=== PATIENT | female | born 1945 | race Caucasian/White ===

== ENCOUNTER 2019-04-19 01:37 | Inpatient (IN) | payer MEDICARE, OTHER ==
[~2019-04-19] VITALS: Ht 152.4 cm; Wt 88.3 kg
[2019-04-19] VITALS (16 sets, daily range): BP systolic 133–189; BP diastolic 57–134
[~2019-04-19 01:37] MED LIST: ACET-2146 PO; CALC-83 PO; MELA10CA PO; MULT-1335 PO; RANI150C17 PO; TRAM-420 PO
[2019-04-19] MEDS ORDERED: LIDOCAINE/SOD BICARB 8.4% SYR ID ONE (05:30)
[2019-04-19] MEDS ORDERED: MIDAZOLAM 2 MG/2 ML VIAL IVP PRN (05:30)
[2019-04-19] MEDS ORDERED: BACITRACIN 50000 UNIT/VIAL 50,000 UNIT in NS 0.9% IRRIG(*) 1000ML PLCT 1,000 ML IR PRN ×2 (05:30→06:00)
[2019-04-19] MEDS ORDERED: ROPIVACAINE/EPI/CLONIDINE/KET 50 ML SYRINGE INJ ONE (05:30)
[2019-04-19] MEDS ORDERED: CLINDAMYCIN(*) 900 MG/NS 50 ML 50 ML IVPB ONE (05:30)
[2019-04-19] MEDS: NORMOSOL R SOLN(*) 1000 ML BAG 1,000 ML IV PRN ×2 (05:34→09:40)
[2019-04-19] MEDS ORDERED: ACETAMINOPHEN 500 MG TAB PO ONE (06:00)
[2019-04-19] MEDS ORDERED: PREGABALIN 75 MG CAPSULE PO ONE (06:00)
[2019-04-19] MEDS ORDERED: THROMBIN (BOVINE) 20,000 UNIT VIAL ONE (06:28)
[2019-04-19] MEDS ORDERED: ROPIVACAINE 0.2% 20 ML VIAL ONE (06:28)
[2019-04-19] MEDS ORDERED: REMIFENTANIL HCL 1 MG VIAL ONE (06:57)
[2019-04-19] MEDS ORDERED: PROPOFOL EMUL(*) 10MG/ML 20 ML 120 ML ONE (08:44)
[2019-04-19] MEDS ORDERED: SUGAMMADEX SOD 500 MG/5 ML SDV ONE (08:44)
[2019-04-19] MEDS ORDERED: ONDANSETRON 4 MG/2 ML VIAL ONE (08:44)
[2019-04-19] MEDS ORDERED: ROCURONIUM BROM 10 MG/ML 10 ML ONE (08:44)
[2019-04-19] MEDS ORDERED: HYDROmorphone HCL 2 MG/ML SDV ONE (08:51)
--- NOTE | 2019-04-19 09:22 | RADIOLOGY IMAGING REPORT ---
FACILITY: [facility] PATIENT NAME: Sepideh Stephenson : 1945 MR: [id number] V: [id number] EXAM DATE: ORDERING PHYSICIAN: ROBERT WHYTE TECHNOLOGIST: Location: [facility] Patient: Sepideh Stephenson : 1945 Visit/Account:[id number] Date of Sevice: 04/19/2019 Lumbar spine Indication: L4-5 disc herniation/fusion. Comparison: 01/10/2019. FINDINGS: 2 intraoperative radiographs demonstrating surgical hardware posterior to the L4-L5 disc space with s ubsequent L4-L5 posterior fusion hardware placement. The spondylolisthesis appears to be resolved on the second radiograph after fusion hardware placement. Normal lumbar lordosis. No acute osseous abnormality. Moderate degenerative disc disease at L2-L3. Mild/moderate additional multilevel degenerative disc d isease. IMPRESSION: 1. Intraoperative radiographs demonstrating L4-L5 fusion hardware placement. No visualized hardware complication. Report Dictated By: Murray Fleming MD at 04/19/2019 9:14 AM Report E-Signed By: Murray Fleming MD at 04/19/2019 9:17 AM WSN:[email or web address]
[2019-04-19] MEDS ORDERED: fentaNYL CITR 100 MCG/2 ML AMP ONE ×2 (09:47→10:12)
[2019-04-19] MEDS ORDERED: diphenhydrAMINE 25 MG CAP PO PRN (10:05)
[2019-04-19] MEDS ORDERED: ACETAMINOPHEN 500 MG TAB PO PRN (10:05)
[2019-04-19] MEDS ORDERED: ONDANSETRON 4 MG/2 ML VIAL IVP PRN (10:05)
[2019-04-19] MEDS ORDERED: BISACODYL 10 MG SUPP PR PRN (10:05)
[2019-04-19] MEDS ORDERED: ACETAMINOPHEN(*)1000 MG/100 ML 100 ML IVPB PRN (10:05)
[2019-04-19] MEDS ORDERED: FLUSH 10 ML SYR IVP PRN (10:05)
[2019-04-19] MEDS ORDERED: LR(*) 1000 ML BAG 1,000 ML IV PRN (10:05)
[2019-04-19] MEDS ORDERED: MAGNESIUM HYDROXIDE* 30ML UDCP PO PRN (10:05)
[2019-04-19] MEDS ORDERED: oxyCODONE HCL 5 MG CAP PO PRN (10:05)
[2019-04-19] MEDS ORDERED: HYDROmorphone HCL 2 MG/ML SDV IVP PRN (10:05)
[2019-04-19] MEDS ORDERED: BENZOCAINE/MENTHOL 1 EACH LOZG PO PRN (10:05)
[2019-04-19] MEDS ORDERED: DIAZEPAM 5 MG TAB PO PRN (10:05)
--- NOTE | 2019-04-19 10:11 | OPERATIVE REPORT 1 ---
EVENT DATE: April 19, 2019 SURGEON: Gokul Dutton MD ANESTHESIOLOGIST: Isai Acosta MD ANESTHESIA: General endotracheal anesthesia. 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 POSTOPERATIVE DIAGNOSIS L4, L5 spinal stenosis with L4, L5 degenerative spondylolisthesis and left leg radiculopathy, plus neurogenic claudication. PROCEDURE PERFORMED L4, L5 laminectomy with L4, L5 posterolateral instrumented fusion and reduction of L4, L5 spondylolisthesis with placement of pedicle screw construct. IV FLUIDS 1800 cc. ESTIMATED BLOOD LOSS 120 cc. IMPLANTS USED 6.5 mm x 45 mm pedicle screws from [employer] x2, 6.5 mm x 40 mm pedicle screws from [employer] x2, 40 mm connecting rods from [employer] x2 and locking caps from [employer] x4. SPECIMENS None. DRAINS None. COMPLICATIONS None. DISPOSITION Post-anesthesia care unit. INDICATIONS FOR SURGERY Ms. Stephenson is a 73-year-old female who presented with a complaint of low back pain and radiating left lower extremity pain, numbness, and tingling. The symptoms have been present for about 4 years and initially symptoms were relieved by clinical care manager. Last year, the symptoms returned with radiating pain down the upper left buttock and then down the posterior buttock, posterior thigh to the level of the knee. The patient noted a decreased in walking tolerance secondary to heaviness and tiredness in both of her legs. She failed physical therapy, injections, medications, and nonsurgical care. Physical examination revealed normal range of motion, normal strength and sensation and a weakly positive straight leg raising test on the left. Imaging studies showed an anterolisthesis of L4 on L5 with severe spinal stenosis at that level and significant compression of the neural elements traversing the L4, L5 disc space. Other levels had less significant degenerative changes, but no significant pressure on the neural elements. Secondary to ongoing symptoms and failure of nonsurgical care, Ms. Stephenson was offered and elected to undergo L4, L5 laminectomy with reduction of the spondylolisthesis and a posterolateral fusion with use of pedicle screw construct. Prior to surgery, I explained in detail to the patient the possible risks of surgery. Risks include, bleeding, infection, damage to surrounding structures, nerve root injury, spinal fluid leak, meningitis, persistent and/or worsening pain, need for further surgery, , blindness, sexual dysfunction, autonomic nervous system dysfunction, and other unforeseen medical and surgical complications. An understanding that in general, spinal surgery is more predictive at improving extremity discomfort than axial spine pain was stressed. DESCRIPTION OF PROCEDURE On the day of surgery, the patient was med in the preoperative hold area and all questions were answered. The operative site was identified and marked by myself. The patient was brought in good condition to the operating room and after succumbing to anesthesia was positioned in the prone position on a Hollis table. All bony protuberances and soft tissues were well-padded in the standard fashion. Care was taken to maintain appropriate perfusion pressures during anesthesia. Preoperative antibiotics were administered according to the appropriate timing schedule. At the conclusion of the procedure sponge and needle counts were correct x2. A final timeout was undertaken by members of the operating team to confirm correct patient, correct levels, and correct surgery. A vertical incision was made overlying the intended surgical levels and sharp dissection was carried out down to the posterior elements. A lateral radiograph was obtained to confirm appropriate spinal levels. Soft tissues were elevated off the posterior elements in a subperiosteal manner and I then took time to dissect out starting points for pedicles screws bilaterally at L4 and bilaterally at L5. This involved dissecting out along the lamina of L4 and L5 and then moving superiorly along the respective pars interarticularis, up to the facet joint above and out to the tips of the transverse processes bilaterally. Once this was accomplished, thrombin soaked sponges were packed into the lateral gutters to maintain space and control bleeding. A Leksell rongeur was then used to remove the spinous process of L4. The lamina of L4 was thinned down the midline using the Leksell rongeur. A straight Navarrete curette was then used to undermine the superior insertion of the ligamentum flavum from the inferior aspect of the lamina of L4. Once I entered the canal, I used a Dodge elevator to separate any dural adhesions from surrounding bone and soft tissue prior to using to Kerrison punch. A midline decompression was performed using a #3 and #4 Kerrison and once that was completed, we then performed bilateral lateral recess decompressions, taking out a significant amount of thickened ligamentum and undercutting the facet joints of L4, L5 bilaterally taking care not to take more than 50% of the joint on either side. Once we had good decompression of the neural elements, we applied FloSeal and surgical patties into the lateral recesses to control bleeding. We then turned our attention to placement of instrumentation. Starting on the right side, we first removed the thrombin soaked sponge and then identified starting points for pedicle screws at approximately the junction of the par interarticularis, the midpoint of the transverse process and the lateral border of the facet. A 5 mm high-speed fransisca was used to decorticate the starting point and a Lenke's type probe was then advanced against resistance through the isthmus of the pedicle and into the vertebral body. We then probed the pedicles using a ball-tip feeler, probing superiorly, inferiorly, medially, laterally, and distally to insure absence of bony breaching. We selected 45 mm screws for the L4 level and 40 mm screws for the L5 level. These screws had extended tabs and so once these were placed bilaterally at both L4 and L5, we selected 40 mm connecting rods and were able to use the extended tabs to effect a reduction of the spondylolisthesis. The locking caps were then tightened and then the counter-torque device was applied and the caps were finally tightened, snapping off the insertion nipples. We took a lateral radiograph to confirm appropriate placement of the instrumentation and then we irrigated the wound with 2 liters of antibiotic impregnated solution. I then used the high-speed fransisca to decorticate the transverse processes of L4 and L5 bilaterally and also to decorticate the facet joints bilaterally. We then placed a combination of harvested local bone and some allograft mixed with demineralized bone matrix into the lateral gutters overlying the transverse processes. Retractors were then removed and the wound was closed in layers using interrupted sutures for the deep fascia, inverted interrupted sutures for subcutaneous tissue and then a running subcuticular skin stitch. Sponge and needle counts were correct x2. POSTOPERATIVE CARE PLAN Ms. Stephenson will remain in the hospital until she meets discharge criteria. She will then be discharged home with instructions to follow up in 2 weeks for wound check and examination. GLENN
--- NOTE | 2019-04-19 13:18 | Hospitalist Consultation ---
History of Present Illness Requesting Physician Dr. Dutton Reason for Consult Medical Management Chief Complaint s/p lumbar fusion History of Present Illness She was admitted s/p lumbar fusion. It is reported the surgery went well and without complication. History Problems: (1) GERD (gastroesophageal reflux disease) Status: Chronic Home Meds Reported Medications Melatonin (MELATONIN) 10 Mg Capsule, 10 MG PO QHS, CAPSULE 04/13/19 Multivitamin With Minerals (MULTIPLE VITAMIN) 1 Each Tablet, 1 EACH PO QAM, TAB 04/13/19 Ranitidine Hcl (RANITIDINE HCL) 150 Mg Capsule, 150 MG PO BID, CAPSULE 04/13/19 Calcium Citrate/Vitamin D3 (Calcium Citrate +Vit D3 Tablet) 200 Mg Calcium-250 Unit Tablet, 1 TAB PO QAM 04/13/19 Acetaminophen 500 Mg Tab (ACETAMINOPHEN EXTRA STRENGTH) 500 Mg Tablet, 500 MG PO PRN, TAB 04/13/19 Tramadol Hcl (TRAMADOL HCL) 50 Mg Tablet, 50-100 MG PO PRN, TAB 04/13/19 Allergies: Coded Allergies: Penicillins (Verified Allergy, Severe, 04/13/19) HIVES Sulfa (Sulfonamide Antibiotics) (Verified Allergy, Unknown, 04/13/19) cephalexin (Verified Allergy, Unknown, RASH, 04/19/19) Smoking Status: Former Smoker When Quit Tobacco?: Caffeine Intake: Coffee Caffeine/Cups Per Day: 3/DAY Hx Alcohol Use: Yes (RARELY ) Alcohol Used: Wine Hx Substance Use Disorder: No Social Drug Use: Former Social Drugs: Marijuana Review of Systems All Systems Reviewed/Normal: Yes, Except as Noted Exam Vital Signs Vital Signs Date Time Temp Pulse Resp B/P (MAP) Pulse Ox O2 Delivery O2 Flow Rate FiO2 04/19/19 10:45 97.5 68 16 183/81 (115) 95 Nasal Cannula 2.0 General Appearance: Alert, Awake, No Acute Distress, Afebrile Neuro: No Gross deficits Cardiovascular: Regular Rate and Rhythm Respiratory: No Respiratory Distress, Clear to Auscultation GI: Abd Soft and Non-Tender Psych: Alert & Oriented X3, Appropriate Mood & Affect Assessment and Plan Problems: (1) S/P lumbar fusion Status: Acute Assessment & Plan: Followed by Dr. Dutton. (2) GERD (gastroesophageal reflux disease) Status: Chronic Assessment & Plan: Continue chronic ranitidine. Venous Thromboembolism Antithrombotics Is Pt On Any Antithrombotics?: No Prophylaxis Tx Contraindicated Pharmacological Contraindicati: Surgical Contraindication Exam Sepsis Risk: No Definite Risk RIVERA MERIDA [facility] Apr 19, 2019 13:18
[2019-04-19] MEDS: CLINDAMYCIN(*) 900 MG/NS 50 ML 50 ML IVPB SCH ×2 (15:23→22:08)
[2019-04-19] MEDS: APAP/HYDROCODONE 325/5 TAB PO PRN ×2 (15:23→19:43)
--- NOTE | 2019-04-19 18:40 | NUR ---
Physical Therapy Impression PT eval completed. Pt tolerated log roll techinque to R) side with some assist for proper body mechanics. Pt encouraged to practice this technique through the evening with nursing as well. Pt indicates that she has 2 steps without rail to access home and spouse generally assists with this. Physical Therapy Goals 1. Pt to be Min/CGA for log roll technique supine to/from sit. 2. Pt to be CGA/SBA for sit to/from stand transfers 3. Pt to tolerate ambulation x 100' with least restrictive device and modified indep 4. Pt to complete up/down platform step x 2 reps with CGA or hand-held assist. Patient's Goals
[2019-04-19] MEDS: DOCUSATE SODIUM 100 MG CAP PO SCH (22:08)
[2019-04-19] MEDS: RANITIDINE HCL 150 MG TAB PO SCH (22:08)
[2019-04-20] MEDS: APAP/HYDROCODONE 325/5 TAB PO PRN ×3 (00:31→09:29)
[2019-04-20 02:59] VITALS: BP 148/76
[2019-04-20] MEDS: CLINDAMYCIN(*) 900 MG/NS 50 ML 50 ML IVPB SCH (06:26)
[2019-04-20] MEDS ORDERED: HYDR-653 PO (07:21)
[2019-04-20] MEDS ORDERED: DOCU240C84 PO (07:21)
[2019-04-20] MEDS ORDERED: DIA5 PO (07:22)
[2019-04-20 07:51] VITALS: BP 130/77
[2019-04-20] MEDS: RANITIDINE HCL 150 MG TAB PO SCH (09:28)
[2019-04-20] MEDS: DOCUSATE SODIUM 100 MG CAP PO SCH (09:29)
--- NOTE | 2019-04-20 10:25 | NUR ---
Physical Therapy Impression Patient ambulated with 4WW ~275 SBA with decreased yaw and cuing for posture. Raised patients walker to improve posture with gait. Patient denied pain with ambulation. Patient ascended and descended 1 platform step with rail on right and [employer] on left with cuing to step up with right leg and down with left as her right is stronger than her left. Patient reports that this really helped and made performing the platform step easier. Patient performed 2 reps with the watching. Patient was SBA with supine to sit log roll with bed rail for assist and then CGA for sit to supine with railing on bed. Patient demonstrated good technique with log roll. All goals are met and patient is ready to d/c to home with OP therapy to follow in a month. Physical Therapy Goals 1. Pt to be Min/CGA for log roll technique supine to/from sit. 2. Pt to be CGA/SBA for sit to/from stand transfers 3. Pt to tolerate ambulation x 100' with least restrictive device and modified indep 4. Pt to complete up/down platform step x 2 reps with CGA or hand-held assist. Patient's Goals
--- NOTE | 2019-04-20 11:16 | Hospitalist Progress Note ---
Subjective Progress Notes Subjective She was admitted s/p lumbar fusion. She had no acute events overnight. Patient Complains of: Cardiovascular: No: Chest Pain Respiratory: No: Shortness of Breath Physical Exam Vital Signs Date Time Temp Pulse Resp B/P (MAP) Pulse Ox O2 Delivery O2 Flow Rate FiO2 04/20/19 07:51 99.3 64 20 130/77 (94) 92 Room Air 04/20/19 07:06 1.0 Intake and Output 04/20/19 07:00 Intake Total 1250 ml Output Total 20 ml Balance 1230 ml Intake Oral 0 ml IV Total 1250 ml Output Estimated Blood Loss 20 ml # Voids 4 # Bowel Movements 0 General Appearance: Alert, Awake, No Acute Distress, Afebrile Neuro: No Gross deficits Cardiovascular: Regular Rate and Rhythm Respiratory: No Respiratory Distress, Clear to Auscultation GI: Soft and Non-Tender Psych: Alert & Oriented X3, Appropriate Mood & Affect Assessment and Plan Problems: (1) S/P lumbar fusion Status: Acute Assessment & Plan: Followed by Dr. Dutton. (2) GERD (gastroesophageal reflux disease) Status: Chronic Assessment & Plan: Continue chronic ranitidine. Exam Sepsis Risk: No Definite Risk RIVERA MERIDA [facility] Apr 20, 2019 11:16
== END 2019-04-20 11:36 | disposition home or self-care (01) | DRG 460 ==
LOC: OR 01:37 → MED 10:40
PROVIDERS: ADMIT Orthopaedic Surgery; ATTEND Orthopaedic Surgery
PROC: 01NB0ZZ Release Lumbar Nerve, Open Approach (ICD-10-PCS; 2019-04-19)
PROC: 0SG0071 Fusion of Lumbar Vertebral Joint with Autologous Tissue Substitute, Posterior Approach, Posterior Column, Open Approach (ICD-10-PCS; principal; 2019-04-19 07:04)
DX: M48.062 Spinal stenosis, lumbar region with neurogenic claudication (principal); M54.16 Radiculopathy, lumbar region; M43.16 Spondylolisthesis, lumbar region; K21.9 Gastro-esophageal reflux disease without esophagitis; Z88.0 Allergy status to penicillin; Z88.2 Allergy status to sulfonamides; Z88.8 Allergy status to other drugs, medicaments and biological substances; Z90.49 Acquired absence of other specified parts of digestive tract; Z90.710 Acquired absence of both cervix and uterus
CPT/HCPCS: 36415; 72020; 86850; 86900; 86901; 95940; 97161; C1713; J1170; J2250; J2405; J2704; J2795; J3010; J3490; J7120